=== PATIENT | female | born 2000 | race Hispanic/Latino ===

== ENCOUNTER 2024-06-06 01:49 | Inpatient (IN) | payer MEDICAID, SELFPAY ==
[2024-06-06] VITALS (37 sets, daily range): BP systolic 81–121; BP diastolic 43–80; PULSE 61–99; RESP 16; TEMP 36.3–36.9; O2SAT 98–100
[2024-06-06 02:09] LABS: Absolute Lymphocyte Count 2.34 X10^3/uL (0.83-4.51); Basophil# 0.02 X10^3/uL; Basophil% 0.2 % (0-1); Eosinophil# 0.08 X10^3/uL; Eosinophils% 0.8 % (0-5); Hematocrit 36.4 % (37-47); Hemoglobin 12.2 g/dL (12.0-15.0); Lymphocyte # 2.34 X10^3/ul (0.83-4.51); Lymphocyte % 23.4 % (19-41); Mean Corp Hgb Conc 33.5 g/dL (32-36); Mean Corpuscular Hgb 28.6 pg (27.0-32.0); Mean Corpuscular Volume 85.2 fL (81-99); Mean Platelet Vol. 10.7 fl (6.2-12.0); Monocyte# 0.54 X10^3/uL; Monocyte% 5.4 % (0-10); NRBC Flagged by Analyzer 0 % (0-5); Neutrophil # 6.95 X10^3/uL (2.7-7.7); Neutrophil % 69.6 % (47-70); Platelet Count 221 K/mm3 (150-450); RBC Distribution Width CV 13.8 % (11.6-14.6); RBC Distribution Width SD 42.8 fl (35.1-43.9); Red Blood Count 4.27 M/mm3 (4.2-5.4)
[2024-06-06] MEDS: Lactated Ringers 1,000 ML 999 ML IV (02:10)
--- NOTE | 2024-06-06 02:12 | NURSING ---
Needs assistance erin [facility]unn WIC and transportation
[2024-06-06] MEDS: Penicillin G Pot 5,000,000 UNITS in 0.9% Normal Saline (100mL MB+) 100 ML 150 UNITS IV (02:45)
[2024-06-06] MEDS: fentaNYL-bupivacaine (epidural) 100 ML BAG EPIDURAL (03:10)
[2024-06-06] MEDS: Lactated Ringers 1,000 ML 50 ML IV (03:10)
[2024-06-06] MEDS: Oxytocin 10 UNITS/ML Vial IM (06:43)
[2024-06-06] MEDS: Oxytocin 15 Units/NS 250ml 15 UNITS/250 ML IV.SOLN 83 UNITS IV (06:45)
--- NOTE | 2024-06-06 06:46 | PCM.HP.OB ---
HPI - General General Date of Admission: 06/06/24 Date of Service: 06/06/24 HPI Narrative TAMIKO MCBRIDE, is a 23 F who presents with ctxs. Maternal Data Information BRENT Calculator Estimated Delivery Date Method Current WG Current Estimate 06/26/24 Manual 37w 1d PFSH PFSH Medical History no medical history Allergy/AdvReac Type Severity Reaction Status Date / Time No Known Allergies Allergy Verified 06/06/24 02:31 Family History no significant family his Surgical History no surgical history Social History Smoking Status: Former smoker History Elective abortions Hx Para 1 Spontaneous abortions Hx # Term Pregnancies Ectopic pregnancies Hx # Pregnancies Multiple births # of living children Vital Signs Vital Signs Vital Signs: 06/06/24 02:56 06/06/24 02:56 06/06/24 02:59 Temperature Temperature Source Pulse Rate 92 95 Respiratory Rate Blood Pressure 121/59 H BP Systolic 121 BP Diastolic 59 Pulse Ox 06/06/24 02:59 06/06/24 03:01 06/06/24 03:01 Temperature Temperature Source Pulse Rate 93 Respiratory Rate Blood Pressure 113/64 BP Systolic 113 BP Diastolic 64 Pulse Ox 100 06/06/24 03:04 06/06/24 03:04 06/06/24 03:08 Temperature Temperature Source Pulse Rate 86 Respiratory Rate Blood Pressure 106/52 L BP Systolic 106 BP Diastolic 52 Pulse Ox 100 06/06/24 03:08 06/06/24 03:09 06/06/24 03:09 Temperature Temperature Source Pulse Rate 79 78 Respiratory Rate Blood Pressure BP Systolic BP Diastolic Pulse Ox 100 06/06/24 03:12 06/06/24 03:12 06/06/24 03:14 Temperature Temperature Source Pulse Rate 74 80 Respiratory Rate Blood Pressure 109/58 L BP Systolic 109 BP Diastolic 58 Pulse Ox 06/06/24 03:14 06/06/24 03:16 06/06/24 03:16 Temperature Temperature Source Pulse Rate 85 Respiratory Rate Blood Pressure 96/56 L BP Systolic 96 BP Diastolic 56 Pulse Ox 100 06/06/24 03:19 06/06/24 03:19 06/06/24 03:22 Temperature Temperature Source Pulse Rate 79 Respiratory Rate Blood Pressure 112/57 L BP Systolic 112 BP Diastolic 57 Pulse Ox 100 06/06/24 03:22 06/06/24 03:24 06/06/24 03:24 Temperature Temperature Source Pulse Rate 74 79 Respiratory Rate Blood Pressure BP Systolic BP Diastolic Pulse Ox 100 06/06/24 03:26 06/06/24 03:26 06/06/24 03:29 Temperature Temperature Source Pulse Rate 68 67 Respiratory Rate Blood Pressure 110/59 L BP Systolic 110 BP Diastolic 59 Pulse Ox 06/06/24 03:29 06/06/24 03:31 06/06/24 03:31 Temperature Temperature Source Pulse Rate 64 Respiratory Rate Blood Pressure 103/50 L BP Systolic 103 BP Diastolic 50 Pulse Ox 100 06/06/24 03:34 06/06/24 03:34 06/06/24 04:26 Temperature Temperature Source Temporal Pulse Rate 74 Respiratory Rate Blood Pressure BP Systolic BP Diastolic Pulse Ox 100 06/06/24 04:26 06/06/24 04:26 06/06/24 04:27 Temperature 97.6 F L Temperature Source Pulse Rate Respiratory Rate 16 Blood Pressure 81/43 L BP Systolic 81 BP Diastolic 43 Pulse Ox 06/06/24 04:27 06/06/24 04:27 06/06/24 04:27 Temperature Temperature Source Pulse Rate 67 83 Respiratory Rate Blood Pressure BP Systolic BP Diastolic Pulse Ox 100 06/06/24 04:28 06/06/24 04:28 06/06/24 05:09 Temperature Temperature Source Pulse Rate 75 Respiratory Rate Blood Pressure 105/52 L 111/80 BP Systolic 105 111 BP Diastolic 52 80 Pulse Ox 06/06/24 05:09 06/06/24 06:17 06/06/24 06:17 Temperature Temperature Source Temporal Pulse Rate 96 Respiratory Rate Blood Pressure 112/60 BP Systolic 112 BP Diastolic 60 Pulse Ox 06/06/24 06:17 06/06/24 06:17 06/06/24 06:17 Temperature 98.4 F Temperature Source Pulse Rate 99 Respiratory Rate 16 Blood Pressure BP Systolic BP Diastolic Pulse Ox Weight Weight: 163 lb 3.2 oz Labs Labs Labs: Blood Type O POSITIVE Antibody Screen NEGATIVE Hct 36.4 % (37-47) L Hgb 12.2 g/dL (12.0-15.0) Syphilis Total Ab Pending Assessment & Plan (1) 37 weeks gestation of : COMMENT: PLAN: Plan Admit ot L&D Expectant management
--- NOTE | 2024-06-06 06:48 | EX.PCM.OBRPT ---
Maternal Data Information BRENT Calculator Estimated Delivery Date Method Current WG Current Estimate 06/26/24 Manual 37w 1d Vaginal Delivery Maternal Presentation Maternal Presentation: Active Labor Operative Information Date of Procedure: 06/06/24 Pre-Operative Diagnosis: Labor Post-Operative Diagnosis: Labor Surgery / Procedure Performed: Spontaneous Vaginal Delivery Type of Anesthesia: Epidural Drain: Reese to straight drain Estimated Blood Loss: 200ml Findings Description of Procedure: Patient prepped & draped when C/C/+2. She pushed well to deliver the head. head gently guided to allow delivery of anterior and posterior shoulders. No excess traction placed on head. Body delivered and 3VC clamped & cut in delayed fashion. Placenta delivered with gentle traction and good uterine tone obtained. Presentation: OSVALDO Amniotic Membrane Rupture Type: Artificial Amniotic Fluid Description: Clear Placental Delivery Description: Expressed Placenta Disposition: [facility] Specimen(s) Removed: Placenta Cord Vessel Description: 3 Vessels Cord Entanglement: Around neck x 1, loose Nuchal Cord Compression: Without compression A Gender: Female (1 minute): 8 (5 minute): 8 Delayed Cord Clamping: Yes Post Vaginal Delivery Medications Given After Delivery: IV Pitocin and IM Pitocin Episiotomy Description: None Laceration: None Complication Complications: None
[2024-06-06] MEDS: Ibuprofen 600 MG Tablet PO (09:11)
[2024-06-06] MEDS: 0.9% Saline Lock 10 ML Syringe IV (09:43)
[2024-06-06] MEDS: Acetaminophen 500 MG Tablet 1000 MG PO ×2 (13:02→21:45)
[2024-06-07] MEDS: Acetaminophen 500 MG Tablet 1000 MG PO (04:43)
[2024-06-07 04:44] VITALS: BP 102/74; PULSE 73; RESP 16; TEMP 36.4; O2SAT 100
--- NOTE | 2024-06-07 08:32 | PCM.PN.OB ---
Subjective Subjective Denies complaints Objective Data Objective Data Vital Signs: Vital Signs Temp Pulse Resp BP Pulse Ox O2 Del Method 97.6 F L 73 16 102/74 100 Room Air 06/07/24 04:44 06/07/24 04:44 06/07/24 04:44 06/07/24 04:44 06/07/24 04:44 06/07/24 04:44 Oxygen Delivery Method Room Air Weight: 163 lb 3.2 oz Intake & Output: Intake and Output for Last 24 Hours 06/05/24 06/06/24 06/07/24 23:59 23:59 23:59 Intake Total 1531 / 1531 Output Total 2350 / 2350 Balance -819 / -819 Lab / Micro Data 06/06/24 02:00 Physical Exam Const alert, oriented x3 and no apparent distress HEENT normocephalic GI soft to palpation, non-tender and non-distended GI Narrative: fundus firm, mid & below umbilicus Extremity normal to inspection and no calf tenderness Assessment & Plan (1) care following vaginal delivery: COMMENT: PPD#2 PLAN: Plan Routine care D/c home after social work complete
--- NOTE | 2024-06-07 08:34 | PCM.DC.SUM ---
Providers Date of Admission: 06/06/24 Primary Care Physician: Emmie Primary Care Phys Reason For Visit: LABOR/VAGINAL DELIVERY Diagnosis Discharge Diagnosis (1) care following vaginal delivery: Status: Acute Code(s): Z39.2 - Encounter for routine follow-up Plan Routine care D/c home after social work complete Medications at Discharge Home Medications acetaminophen 500 mg tablet 1,000 mg (2 x 500 mg) PO Q6H PRN PRN Pain 1-10 Or Fever #0 tabs 06/07/24 ibuprofen 600 mg tablet 600 mg PO Q6H PRN PRN Pain Score 1-10 #0 tabs 06/07/24 Hospital Course Operations None Summary of Care Provided Minutes Spent on Discharge: 15 Weight / BMI Weight Weight: 163 lb 3.2 oz ABG / Lab / Microbiology Data 06/06/24 02:00 D/C Instructions Discharge Diet: No restrictions Discharge Activity: May Shower May resume sexual activity in: 6 weeks Weight Bearing Status: Weight bearing as tolerated Call your doctor if you observe: Fever of 101 or Higher, Coldness, Increased Pain, Change in Color, Inability to urinate, Inability to have a bowel movement, Using more than 1 pad per hour, Shortness of breath, Dizziness, Fainting spells, Chest pain, Increased palpitations (irregular heartbeat), Calf discomfort and Uncontrolled pain Please Follow Up With: Bhavya Parikh MD When: Follow up in 2 and 6 weeks for visits. Meaningful Use Info Meaningful Use Meaningful Use Diagnoses (Choose all that apply): None applicable Ischemic Stroke Statin Dosing Therapy Reference: STATIN DOSE THERAPY REFERENCE: * Patients > 75 years receive moderate or high dose statin therapy. * Patients 75 years or YOUNGER should receive HIGH intensity statin dose unless contraindicated. You will be required to document reason for non-treatment if statin daily dose does not meet guidelines. HIGH DOSE STATIN THERAPY DAILY Atorvastatin > than or = to 40 mg Rosuvastatin > than or = to 20 mg Amlodipine + Atorvastatin > than or = to 2.5/40 mg Ezetimibe + Simvastatin 10/80 mg Simvastatin 80mg Discharge Plan Admission Admit Date/Time: 06/06/24 01:49 Primary Reason for Your Visit: Vaginal delivery Attending Provider: Bhavya Parikh Primary Care Provider: Care Physician,Emmie Primary Discharge Orders/Prescriptions Prescriptions: New acetaminophen 500 mg Tablet 1,000 mg PO Q6H PRN PRN (Reason: Pain 1-10 Or Fever) Qty: 0 0RF ibuprofen 600 mg Tablet 600 mg PO Q6H PRN PRN (Reason: Pain Score 1-10) Qty: 0 0RF Referrals / Follow Up: Care Physician,No Primary [Primary Care Provider] - Disposition Disposition (needs filled in before D/C Order can be placed): Home, Self Care
[2024-06-07 09:16] VITALS: BP 98/67; PULSE 88; RESP 16; TEMP 36.3
--- NOTE | 2024-06-07 12:42 | CASEMGMT ---
Social Work Assessment Labor and Delivery Unit Patient Address: [place] [address] Phone number: [phone] Date of Referral: 06/06/24 Time of Referral:212, 1224? Referred By: Dr. Bhavya Parikh Date of Intervention: ??06/07/24 Time of Intervention:? 1015 Reason for Referral:? resources, patient does not have hydro station supervisor for her one year old Sw completed chart review and acknowledges social work consult. Sw presented to bedside and using IPad language interpreter (Kim #[id number]) sw introduced self to mother of baby (MOB- Divina). Sw completed psychosocial assessment and got MOB connected to beneficial community resources. History obtained from: medical records and mother of baby (MOB)??? Household composition: Currently residing in the family home is MOB, father of baby (FOB- Titi Tracy) and several roommates (Josafat, Annika and Debbie). MOB and FOB have an older son, Titi Tracy (: 01/06/23) who resides in the home, and baby also to be added to residence when ready for discharge. - MOB reports that the home is safe and secure, she is not scared they will loose their housing. MOB does report that they have heat but are unable to regulate it. The home midwife and birth center owner has been informed of this concern and is going to be looking into it. Patient's parent/guardian status:? ?MOB states that she and FOB have been together for 3 years after being introduced by mutual friends. MOB denies any domestic violence or intimate partner violence. This is second baby for parents together. Medical History: ?CATY is 23 year old female who is 2, para 1- now 2 following labor and delivery of . MOB states that she discovered she was at 3 months of . MOB states that she then started care with [facility] whom she saw routinely throughout duration of . CATY presented to hospital and delivered baby via vaginal delivery at 40 weeks gestation on 06/06/24. Baby girl, named Mayda Foreman, was born weighing 4lb with apgars of 8 and 8 at one and five minutes of life, respectfully. MOB reports that she is working on breast feeding, but does not have any milk. Sw encouraged MOB to discuss any concerns with . - MOB reports that she does not have a hydro station supervisor picked out for baby, and also admits that her one year old has not been seen by a hydro station supervisor. - Pablo informed MOB of local hydro station supervisor offices to chose from, ultimately MOB chose to get scheduled with [facility]. Pablo called [facility] and assisted MOB in getting apt scheduled for baby. [facility] states that when they come in for appointment they can get appointment scheduled for the older child. Pablo explained all of this to MOB and she expressed understanding. Educational Status:?CATY reports that she and FOMing attended high school and graduated in [place]. Financial Status: CATY is unemployed, she will be a stay at home mom with her two children. DAVIS works as a painter and paperhanger apprentice. Supplies: MOB states that they have obtained all necessary baby supplies, including: car seat, safe sleep space, clothes, diapers and wipes. Childcare/Caregiver(s):CATY will be the primary caregiver to baby, along with DAVIS when he is not at work. ? Transportation:?? CATY does not drive, she states that FOB and other people who live with them help her to get to scheduled appointments. - Pablo provided information and education to CATY on how to utilize her Medicaid insurance to arrange transportation in the future if this becomes a problem for her. Programs/Agencies Involved: CATY denies being connected to any community agencies that assist her financially. - Pablo provided MOB with list of local firsthealth resources that she has access to should any needs present themselves. - Pablo informed MOB of [facility]. MOB expressed desire in getting connected to [facility] and asked sw to help her. Pablo called [facility] office and got MOB appointment scheduled for herself, and one year old. MOB offered appreciation. Pablo also informed MOB of food pantry and food assistance programs local to her such as [employer] and [facility]. ??? Children Services/Legal Issues:??? No history of children services involvement. No issues or concerns warranting referral to be made at this time. Behavioral Health Issues: ??Mental Health History: MOB denies mental health diagnoses for herself and FOB. ??? Substance Use History:?MOB denies substance use prior to and during . ? Family History:??MOB states that her uncle smokes marijuana. MOB denies other family substance use/ addiction history or significant mental health diagnoses. ??? Drug Screens: No drug screens observed in chart review. Family/Social Stressors:?MOB identifies that transportation, food insecurities and lack of community resources has been stressful for her and her family. MOB appreciative of information and linkage provided by . Support Systems: MOB identifies that Titi and the friends that they live with are all supportive. Depression/Shaken Baby/Safe Sleeping: Sw educated MOB on signs and symptoms of baby blues and mood and anxiety disorders to be on the lookout for. MOB stated that she was never told of these issues in the past. MOB denied struggling with her mental health after her son was born. Sw educated MOB on shaken baby prevention and ABCs of safe sleep. MOB expressed understanding. ASSESSMENT:?MOB and baby admitted following labor and delivery. MOB observed to be holding baby and providing loving and appropriate hands on care to baby. MOB made eye contact and participated in completion of assessment. MOB receptive to getting connected to resources sw provided and appreciative of assistance offered by to do so. PLAN:?? No other services requested or indicated. MOB and baby to be discharged when medically ready. Parents were provided literature regarding: signs and symptoms of baby blues and mood and anxiety disorders, Help Me Grow, shaken baby prevention, ABCs of safe sleep and a list of firsthealth resources that are available for them should any needs present themselves. Yelena Vega, ASSISTANT MANAGER RETAIL, MANAGER ONCOLOGY
== END 2024-06-07 14:00 | disposition home or self-care (01) | DRG 807 ==
LOC: WPOUT 01:55 → WP 01:55
PROVIDERS: Admitting Provider Obstetrics & Gynecology; Referring Provider Obstetrics & Gynecology; Visit Provider Obstetrics & Gynecology
DX: O69.81X0 Labor and delivery complicated by cord around neck, without compression, not applicable or unspecified (principal); Z37.0 Single live birth; Z3A.37 37 weeks gestation of pregnancy; Z87.891 Personal history of nicotine dependence
CPT/HCPCS: 59025; 59050; 85025; 86780; 86850; 86900; 86901; 99221; J7120; A4216; G0378